=== PATIENT | female | born 1970 | race Two or more races ===

== ENCOUNTER 2025-06-08 09:46 | Emergency (ER) | payer OTHER ==
[~2025-06-08] VITALS: Ht 165.1 cm; Wt 60.0 kg
[2025-06-08 09:52] VITALS: O2SAT 98
[2025-06-08 12:22] VITALS: BP 122/81; PULSE 83; RESP 18; TEMP 36.8; O2SAT 98
== END 2025-06-08 12:35 ==
LOC: ER 09:46
DX: M79.89 Other specified soft tissue disorders (principal); Z88.0 Allergy status to penicillin; Z88.5 Allergy status to narcotic agent
CPT/HCPCS: 93970; 99284